=== PATIENT | male | born 1945 | race Caucasian/White ===

== ENCOUNTER 2019-08-17 23:05 | Emergency (ER) | payer MEDICARE, BC ==
[2019-08-17] MEDS ORDERED: LORazepam 2 MG/ML SDV IVPUSH ONE (23:48)
[2019-08-17 23:49] LABS: CHLORIDE,CL 106 mmol/L (98-107); SODIUM,NA 144 mmol/L (136-145)
--- NOTE | 2019-08-18 00:09 | EDM.PDOC ---
ED HPI GENERAL MEDICAL PROBLEM - General Chief Complaint: General Stated Complaint: confusion Time Seen by Provider: 08/17/19 23:07 Source of Information: Reports: Patient, EMS, Family History Limitations: Reports: Altered Mental Status - History of Present Illness INITIAL COMMENTS - FREE TEXT/NARRATIVE: Pt brought to ER via EMS for confusion states it began several days ago but worse today No focal neuro findngs other than confusion states he has been unsteady on his his feet for several days Has been off for past 2 weeks and has had decreased appetite and decreased oral intake Was concerned he might be dehydrated also sates he fell out of bed 2 nights ago No specific complaints after fall states no other trauma No recent illness No new meds Onset: Gradual Duration: Day(s):, Getting Worse Associated Symptoms: Reports: Confusion - Related Data Allergies Allergy/AdvReac Type Severity Reaction Status Date / Time No Known Allergies Allergy Verified 08/17/19 23:07 Home Meds: Home Meds Rosuvastatin [Crestor] 10 mg PO DAILY 08/17/19 [History] Past Medical History Cardiovascular History: Reports: High Cholesterol - Infectious Disease History Infectious Disease History: Reports: Measles, Mumps Social & Family History - Family History Family Medical History: Unobtainable - Tobacco Use Smoking Status *Q: Current Some Day Smoker Years of Tobacco use: 50 Packs/Tins Daily: 0.5 - Caffeine Use Caffeine Use: Reports: Coffee, Soda - Recreational Drug Use Recreational Drug Use: No ED ROS GENERAL - Review of Systems Review Of Systems: See Below Neurological: Reports: Confusion ED EXAM, GENERAL - Physical Exam Exam: See Below Exam Limited By: Altered Mental Status General Appearance: No Apparent Distress, Other (Confused) Throat/Mouth: Normal Oropharynx Head: Atraumatic Neck: Supple Respiratory/Chest: Lungs Clear Cardiovascular: Regular Rate, Rhythm GI/Abdominal: Non-Tender Extremities: No Pedal Edema Neurological: No Motor/Sensory Deficits, Confused Psychiatric: Anxious Skin Exam: Intact Course - Vital Signs Last Recorded V/S: Last Vital Signs Temp 99.2 F 08/17/19 23:10 Pulse 82 08/17/19 23:10 Resp 15 08/17/19 23:10 BP 153/68 H 08/17/19 23:10 Pulse Ox 96 08/17/19 23:10 - Orders/Labs/Meds Orders: Active Orders 24 hr Category Date Time Status Head wo Cont [CT] Stat Exams 08/17/19 23:08 Taken Labs: Laboratory Tests 08/17/19 08/17/19 Range/Units 23:21 23:21 WBC 6.8 (4.0-10.2) K/uL RBC 4.21 L (4.33-5.41) M/uL Hgb 13.6 (13.1-16.8) g/dL Hct 40.7 (39.0-49.0) % MCV 96.7 (84.0-98.0) fL MCH 32.3 (28.2-33.3) pg MCHC 33.4 (31.7-36.0) g/dL RDW 13.1 (11.2-14.1) % Plt Count 164 (150-350) K/uL Neut % (Auto) 64.6 (45.0-80.0) % Lymph % (Auto) 20.8 (10.0-50.0) % [place] % (Auto) 9.9 (2.0-14.0) % Eos % (Auto) 4.3 (0.0-5.0) % Baso % (Auto) 0.4 (0.0-2.0) % Neut # (Auto) 4.39 (1.40-7.00) K/uL Lymph # (Auto) 1.41 (0.50-3.50) K/uL [place] # (Auto) 0.67 (0.00-1.00) K/uL Eos # (Auto) 0.29 (0.00-0.50) K/uL Baso # (Auto) 0.03 (0.00-0.20) K/uL Sodium 144 (136-145) mmol/L Potassium 3.2 L (3.5-5.1) mmol/L Chloride 106 (98-107) mmol/L Carbon Dioxide 27.4 (21.0-32.0) mmol/L BUN 16 (7-18) mg/dL Creatinine 0.72 (0.51-1.17) mg/dL Est Cr Clr Drug Dosing 85.76 mL/min Estimated GFR (MDRD) > 60 mL/min Glucose 146 H (74-106) mg/dL Calcium 9.0 (8.5-10.1) mg/dL Magnesium 2.1 (1.8-2.4) mg/dL Total Bilirubin 0.3 (0.2-1.0) mg/dL AST 17 (15-37) U/L ALT 20 (12-78) U/L Alkaline Phosphatase 109 (46-116) IU/L Total Protein 7.2 (6.4-8.2) g/dL Albumin 3.7 (3.4-5.0) g/dL TSH, Ultra Sensitive 1.275 (0.358-3.740) mIU/mL Ethyl Alcohol 0.000 (0.000-0.080) g/dL Meds: Medications Discontinued Medications Generic Name Dose Route Start Last Admin Trade Name Freq PRN Reason Stop Dose Admin Lorazepam 1 mg 08/17/19 23:48 08/17/19 23:58 Ativan IVPUSH 08/17/19 23:49 1 mg ONETIME ONE Administration - Re-Assessments/Exams Free Text/Narrative Re-Assessment/Exam: 08/18/19 00:[address] report Bilateral subarachnoid bleed See lab D/W [facility] Will accept in transfer Transfer via ambulance Departure - Departure Time of Disposition: 00:15 Disposition: DC/Tfer to Acute Hospital 02 Clinical Impression: Subarachnoid bleed - Discharge Information *PRESCRIPTION DRUG MONITORING PROGRAM REVIEWED*: Not Applicable *COPY OF PRESCRIPTION DRUG MONITORING REPORT IN PATIENT SAMEER: Not Applicable Referrals: Jovan Rodriguez MD [Primary Care Provider] - Sepsis Event Note - Evaluation Sepsis Screening Result: No Definite Risk - Focused Exam Vital Signs: Vital Signs Temp Pulse Resp BP Pulse Ox 08/17/19 23:10 99.2 F 82 15 153/68 H 96 Date Exam was Performed: 08/18/19 Time Exam was Performed: 00:04 - My Orders Last 24 Hours: My Active Orders 08/17/19 23:08 Head wo Cont [CT] Stat - Assessment/Plan Last 24 Hours: My Active Orders 08/17/19 23:08 Head wo Cont [CT] Stat
[2019-08-18] MEDS ORDERED: LORazepam 2 MG/ML SDV IVPUSH ONE (00:16)
== END 2019-08-18 00:25 ==
LOC: LL.ED 23:05
DX: S06.6X9A Traumatic subarachnoid hemorrhage with loss of consciousness of unspecified duration, initial encounter (principal); F17.210 Nicotine dependence, cigarettes, uncomplicated; W06.XXXA Fall from bed, initial encounter
CPT/HCPCS: 36415; 70450; 80053; 80307; 83735; 84443; 85025; 87804; 96374; 99285; J2060

== ENCOUNTER 2019-11-06 18:25 | Emergency (ER) | payer MEDICARE, BC ==
--- NOTE | 2019-11-06 19:22 | EDM.PDOC ---
ED HPI GENERAL MEDICAL PROBLEM - General Chief Complaint: General Stated Complaint: confusion Time Seen by Provider: 11/06/19 18:46 Source of Information: Reports: Patient, Family History Limitations: Reports: Altered Mental Status (improved by time of arrival to ER) - History of Present Illness INITIAL COMMENTS - FREE TEXT/NARRATIVE: Patient brought be private vehicle to ER for evaluation of acute episode of confusion. Patient was out golfing today/mowing lawn. When returned home did not recognize his and became agitated. She called EMS who went to evaluate situation but it was decided that drive him in herself. Patient had bilateral subarachnoid bleed diagnosed Aug 18 at this ER. Main complaint at that time was acute confusion. Review of note mentions that patient's said he had been a bit "off" for a few weeks, not eating as much/ not as active but did not appear confused. Patient treated at [facility] for the bleed. Shortly afterwards he had GI bleed and ended up at [facility] in [place] to be treated for that. Was hospitalized for approx 30 days straight due to these two issues. has noticed that patient has had periodic hallucinations /confusion over the past few weeks that have been mild and brief. He will see another person present in the house and ask her why they are there. Today is the first day he was not able to recognize the however. She does not report any similar episodes present prior to the July bleed. - Related Data Allergies Allergy/AdvReac Type Severity Reaction Status Date / Time Tetanus Vaccines and Toxoid Allergy Swelling Verified 11/06/19 18:43 Home Meds: Home Meds Rosuvastatin [Crestor] 10 mg PO DAILY 08/17/19 [History] Finasteride 1 tab PO DAILY 11/06/19 [History] Pantoprazole Sodium [Protonix] 40 mg PO BID 11/06/19 [History] Sulfamethoxazole/Trimethoprim [Septra DS] 1 each PO BID #30 tab 11/06/19 [Rx] traZODone 1 tab PO BEDTIME PRN 11/06/19 [History] Past Medical History Cardiovascular History: Reports: High Cholesterol - Infectious Disease History Infectious Disease History: Reports: Measles, Mumps Social & Family History - Family History Family Medical History: Unobtainable - Tobacco Use Smoking Status *Q: Former Smoker Packs/Tins Daily: 0.5 Used Tobacco, but Quit: Yes Month/Year Tobacco Last Used: 06/2018 - Caffeine Use Caffeine Use: Reports: Coffee, Soda - Recreational Drug Use Recreational Drug Use: No ED ROS GENERAL - Review of Systems Review Of Systems: See Below Constitutional: Reports: No Symptoms HEENT: Reports: No Symptoms, Glasses Respiratory: Reports: No Symptoms Cardiovascular: Reports: No Symptoms GI/Abdominal: Reports: No Symptoms : Reports: Other (Has need to self cath since Jul due to issues urinating s/p subarachnoid). Denies: Discharge, Dysuria, Flank Pain, Frequency, Hematuria, Pain, Urgency Musculoskeletal: Reports: Other (no acute changes from baseline) Skin: Reports: No Symptoms Neurological: Reports: Confusion, Pre-Existing Deficit. Denies: Dizziness, Headache, Numbness, Paresthesia, Seizure, Syncope, Trouble Speaking, Difficulty Walking, Weakness, Change in Speech, Gait Disturbance Psychiatric: Reports: Confusion Hematologic/Lymphatic: Reports: No Symptoms Immunologic: Reports: No Symptoms ED EXAM, GENERAL - Physical Exam Exam: See Below Exam Limited By: No Limitations General Appearance: Alert, WD/WN, No Apparent Distress Eye Exam: Bilateral Eye: EOMI, PERRL Ears: Normal External Exam, Hearing Grossly Normal Nose: No: Nasal Deformity, Nasal Swelling, Nasal Drainage Throat/Mouth: Normal Lips, Normal Voice, No Airway Compromise Head: Atraumatic, Normocephalic Neck: Supple, Non-Tender Respiratory/Chest: No Respiratory Distress, Lungs Clear, Normal Breath Sounds, No Accessory Muscle Use, Chest Non-Tender Cardiovascular: Regular Rate, Rhythm, No Murmur GI/Abdominal: Normal Bowel Sounds, Soft, Non-Tender, No Distention (Male) Exam: Deferred Rectal (Males) Exam: Deferred Back Exam: Normal Inspection. No: CVA Tenderness (L), CVA Tenderness (R), Muscle Spasm, Paraspinal Tenderness, Vertebral Tenderness Extremities: Normal Range of Motion, Non-Tender, No Pedal Edema, Normal Capillary Refill Neurological: Alert, CN II-XII Intact, Other (Equal tone and strength bilaterally. Hx of minimal weakness on left since brain bleed in Jul. Oriented to self/month/day/date/location. Needed some prompting to remember President's name. ) Psychiatric: Normal Affect, Normal Mood Skin Exam: Warm, Dry, Intact, Normal Color Course - Vital Signs Last Recorded V/S: Last Vital Signs Temp 37.0 C 11/06/19 18:32 Pulse 74 11/06/19 19:15 Resp 14 11/06/19 19:15 BP 127/77 11/06/19 19:15 Pulse Ox 99 11/06/19 19:15 - Orders/Labs/Meds Orders: Active Orders 24 hr Category Date Time Status Head wo Cont [CT] Stat Exams 11/06/19 18:30 Taken CULTURE URINE [RM] Routine Lab 11/06/19 19:52 Ordered VITAMIN B12 [CHEM] Routine Lab 11/06/19 20:05 Ordered Labs: Laboratory Tests 11/06/19 11/06/19 11/06/19 Range/Units 19:00 19:00 19:00 WBC 6.0 (4.0-10.2) K/uL RBC 3.82 L (4.33-5.41) M/uL Hgb 11.6 L D (13.1-16.8) g/dL Hct 36.9 L (39.0-49.0) % MCV 96.6 (84.0-98.0) fL MCH 30.4 (28.2-33.3) pg MCHC 31.4 L (31.7-36.0) g/dL RDW 14.4 H (11.2-14.1) % Plt Count 162 (150-350) K/uL Neut % (Auto) 53.4 (45.0-80.0) % Lymph % (Auto) 29.0 (10.0-50.0) % [place] % (Auto) 11.6 (2.0-14.0) % Eos % (Auto) 5.2 H (0.0-5.0) % Baso % (Auto) 0.8 (0.0-2.0) % Neut # (Auto) 3.21 (1.40-7.00) K/uL Lymph # (Auto) 1.74 (0.50-3.50) K/uL [place] # (Auto) 0.70 (0.00-1.00) K/uL Eos # (Auto) 0.31 (0.00-0.50) K/uL Baso # (Auto) 0.05 (0.00-0.20) K/uL Sodium 140 (136-145) mmol/L Potassium 3.7 (3.5-5.1) mmol/L Chloride 102 (98-107) mmol/L Carbon Dioxide 28.0 (21.0-32.0) mmol/L BUN 12 (7-18) mg/dL Creatinine 0.83 (0.51-1.17) mg/dL Est Cr Clr Drug Dosing 79.40 mL/min Estimated GFR (MDRD) > 60 mL/min Glucose 101 (74-106) mg/dL Lactic Acid 1.1 (0.4-2.0) mmol/L Calcium 9.4 (8.5-10.1) mg/dL Magnesium (1.8-2.4) mg/dL Total Bilirubin 0.4 (0.2-1.0) mg/dL AST 19 (15-37) U/L ALT 26 (12-78) U/L Alkaline Phosphatase 82 (46-116) IU/L Ammonia (11-32) umol/L Total Protein 7.1 (6.4-8.2) g/dL Albumin 3.9 (3.4-5.0) g/dL Specimen Type Urine Color Urine Appearance Urine pH (5.0-9.0) Ur Specific [place] (1.005-1.030) Urine Protein (NEGATIVE) mg/dL Urine Glucose (UA) (NEGATIVE) mg/dL Urine Ketones (NEGATIVE) mg/dL Urine Occult Blood (NEGATIVE) Urine Nitrite (NEGATIVE) Urine Bilirubin (NEGATIVE) Urine Urobilinogen (0.2-1.0) E.U./dL Ur Leukocyte Esterase (NEGATIVE) Urine RBC /HPF Urine WBC /HPF Ur Epithelial Cells /LPF Urine Bacteria (NONE TO FEW) /HPF 11/06/19 11/06/19 11/06/19 Range/Units 19:00 19:00 19:30 WBC (4.0-10.2) K/uL RBC (4.33-5.41) M/uL Hgb (13.1-16.8) g/dL Hct (39.0-49.0) % MCV (84.0-98.0) fL MCH (28.2-33.3) pg MCHC (31.7-36.0) g/dL RDW (11.2-14.1) % Plt Count (150-350) K/uL Neut % (Auto) (45.0-80.0) % Lymph % (Auto) (10.0-50.0) % [place] % (Auto) (2.0-14.0) % Eos % (Auto) (0.0-5.0) % Baso % (Auto) (0.0-2.0) % Neut # (Auto) (1.40-7.00) K/uL Lymph # (Auto) (0.50-3.50) K/uL [place] # (Auto) (0.00-1.00) K/uL Eos # (Auto) (0.00-0.50) K/uL Baso # (Auto) (0.00-0.20) K/uL Sodium (136-145) mmol/L Potassium (3.5-5.1) mmol/L Chloride (98-107) mmol/L Carbon Dioxide (21.0-32.0) mmol/L BUN (7-18) mg/dL Creatinine (0.51-1.17) mg/dL Est Cr Clr Drug Dosing mL/min Estimated GFR (MDRD) mL/min Glucose (74-106) mg/dL Lactic Acid (0.4-2.0) mmol/L Calcium (8.5-10.1) mg/dL Magnesium 2.1 (1.8-2.4) mg/dL Total Bilirubin (0.2-1.0) mg/dL AST (15-37) U/L ALT (12-78) U/L Alkaline Phosphatase (46-116) IU/L Ammonia < 10 L (11-32) umol/L Total Protein (6.4-8.2) g/dL Albumin (3.4-5.0) g/dL Specimen Type Urincc Urine Color Yellow Urine Appearance Cloudy Urine pH 5.5 (5.0-9.0) Ur Specific [place] 1.010 (1.005-1.030) Urine Protein Negative (NEGATIVE) mg/dL Urine Glucose (UA) Negative (NEGATIVE) mg/dL Urine Ketones Negative (NEGATIVE) mg/dL Urine Occult Blood Trace-intact H (NEGATIVE) Urine Nitrite Positive H (NEGATIVE) Urine Bilirubin Negative (NEGATIVE) Urine Urobilinogen 0.2 (0.2-1.0) E.U./dL Ur Leukocyte Esterase Moderate H (NEGATIVE) Urine RBC 0-5 /HPF Urine WBC 20-30 H /HPF Ur Epithelial Cells Few /LPF Urine Bacteria Many H (NONE TO FEW) /HPF Meds: Medications Discontinued Medications Generic Name Dose Route Start Last Admin Trade Name Patrica PRN Reason Stop Dose Admin Thiamine HCl 100 mg 11/06/19 20:06 11/06/19 20:11 Vitamin B-1 IM 11/06/19 20:07 100 mg ONETIME ONE Administration - Radiology Interpretation Free Text/Narrative:: No acute bleed noted on head CT. Unchanged severe cerebral volume loss noted. Chronic white matter microvascular changes. - Re-Assessments/Exams Free Text/Narrative Re-Assessment/Exam: 11/06/19 20:23 CBC/Chem/Mg/Lactic/ammonia levels unremarkable. Head CT showed no acute bleed/ changes. UA showed mild elevation of WBC but do not suspect infection is of enough magnitude to cause the confusion. Further visiting with patient's led to finding out that patient has been having issues with cognition for a number of months prior to the bleed. The mentions him not acting like usual self, and having problems with basic tasks like balancing checkbook. Given the large amount of cerebral atrophy/small vessel disease noted on CT suspect patient has ongoing issues with early dementia that have recently worsened since the subarachnoid. Call placed to [facility] in [place]. Patient discussed with from Neurology. She agrees that this could be the case. She also mentions an encephalopathy secondary to the bleed that escalated patient's previous baseline problems. She recommended IM Thiamine and that patient be scheduled for outpatient cognitive evaluation at [facility]. We will also have patient discontinue recently started Crestor as that has potential for causing confusion/cognition issues. Will give Rx for Septra for two week coverage for UTI. Patient is to obtain new UA in 14 days to reassess urine and make certain infection has cleared. UC ordered. All of the above discussed with both the patient and his . Patient is understandably unhappy with possible dementia diagnosis. They are in agreement with plan. Departure - Departure Time of Disposition: 20:12 Disposition: Home, Self-Care 01 Condition: Good Clinical Impression: Episodic confusion, Hallucinations, unspecified UTI (urinary tract infection) Qualifiers: Urinary tract infection type: site unspecified Hematuria presence: without hematuria Qualified Code(s): N39.0 - Urinary tract infection, site not specified - Discharge Information *PRESCRIPTION DRUG MONITORING PROGRAM REVIEWED*: Not Applicable *COPY OF PRESCRIPTION DRUG MONITORING REPORT IN PATIENT SAMEER: Not Applicable Instructions: Confusion Referrals: Jovan Rodriguez MD [Primary Care Provider] - Forms: ED Department Discharge Additional Instructions: OK to stop Crestor for now. Make appointment to see Neuro at [facility] as an outpatient to have a neuro- cognitive evaluation performed. We spoke to Dr.Kunecka hernandez about this and this was her recommendation. Continue to observe for changes. No driving. Follow up as needed if you have sudden worsening problems. Recheck urine in two weeks to assess for response to Septra DS. Sepsis Event Note - Evaluation Sepsis Screening Result: No Definite Risk - Focused Exam Vital Signs: Vital Signs Temp Pulse Resp BP Pulse Ox 11/06/19 19:15 74 14 127/77 99 11/06/19 18:36 75 14 140/71 99 11/06/19 18:32 37.0 C 84 20 144/76 H 99 Date Exam was Performed: 11/06/19 Time Exam was Performed: 20:19 - My Orders Last 24 Hours: My Active Orders 11/06/19 18:30 Head wo Cont [CT] Stat 11/06/19 19:52 CULTURE URINE [RM] Routine 11/06/19 20:05 VITAMIN B12 [CHEM] Routine - Assessment/Plan Last 24 Hours: My Active Orders 11/06/19 18:30 Head wo Cont [CT] Stat 11/06/19 19:52 CULTURE URINE [RM] Routine 11/06/19 20:05 VITAMIN B12 [CHEM] Routine
[2019-11-06 19:35] LABS: CHLORIDE,CL 102 mmol/L (98-107); SODIUM,NA 140 mmol/L (136-145)
[2019-11-06] MEDS: Thiamine 200 MG/2 ML MDV IM ONE (20:11)
== END 2019-11-06 20:20 | disposition home or self-care (01) ==
LOC: LL.ED 18:25
DX: R41.0 Disorientation, unspecified (principal); R44.3 Hallucinations, unspecified; N39.0 Urinary tract infection, site not specified; E78.00 Pure hypercholesterolemia, unspecified; Z79.899 Other long term (current) drug therapy; Z87.891 Personal history of nicotine dependence; Z88.8 Allergy status to other drugs, medicaments and biological substances
CPT/HCPCS: 36415; 70450; 80053; 81001; 82140; 82607; 83605; 83735; 85025; 87086; 96372; 99284; J3411

== ENCOUNTER 2020-05-22 10:20 | Emergency (ER) | payer MEDICARE, BC ==
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
== END 2020-05-22 11:25 | disposition home or self-care (01) ==
LOC: LL.ED 10:20
DX: N39.0 Urinary tract infection, site not specified (principal); K27.9 Peptic ulcer, site unspecified, unspecified as acute or chronic, without hemorrhage or perforation; N40.1 Benign prostatic hyperplasia with lower urinary tract symptoms; E78.5 Hyperlipidemia, unspecified; K21.9 Gastro-esophageal reflux disease without esophagitis; E66.9 Obesity, unspecified; Z68.26 Body mass index [BMI] 26.0-26.9, adult; Z87.891 Personal history of nicotine dependence; Z88.7 Allergy status to serum and vaccine; Z79.899 Other long term (current) drug therapy
CPT/HCPCS: 81001; 87086; 99283

== ENCOUNTER 2022-09-30 09:09 | Emergency (ER) | payer MEDICARE, BC ==
[2022-09-30 09:57] LABS: ANION GAP 9.3 meq/L (7-15); CHLORIDE,CL 102 mmol/L (98-107); SODIUM,NA 140 mmol/L (136-145)
[2022-09-30 09:59] LABS: ESTIMATED GFR 69 mL/min (>=60)
[2022-09-30] MEDS: Sodium Chloride 0.9% 1,000 ML IV ONE (11:55)
[2022-09-30] MEDS: Sodium Chloride 0.9% 10 ML Syringe FLUSH PRN (11:55)
== END 2022-09-30 15:39 | disposition home or self-care (01) ==
LOC: LL.ED 09:09
DX: S06.9X9A Unspecified intracranial injury with loss of consciousness of unspecified duration, initial encounter (principal); E78.00 Pure hypercholesterolemia, unspecified; K21.9 Gastro-esophageal reflux disease without esophagitis; N40.0 Benign prostatic hyperplasia without lower urinary tract symptoms; E66.9 Obesity, unspecified; Z68.27 Body mass index [BMI] 27.0-27.9, adult; Z86.73 Personal history of transient ischemic attack (TIA), and cerebral infarction without residual deficits; Z79.899 Other long term (current) drug therapy; W18.09XA Striking against other object with subsequent fall, initial encounter
CPT/HCPCS: 36415; 70450; 72125; 80053; 82947; 83605; 83735; 83880; 84484; 85025; 85610; 93005; 93010; 96360; 96361; 99284; 99284-25; J3490; J7030

== ENCOUNTER 2024-02-10 11:00 | Emergency (ER) | payer MEDICARE, BC ==
[2024-02-10] MEDS ORDERED: Sodium Chloride 0.9% 10 ML Syringe FLUSH PRN (11:41)
[2024-02-10 11:55] LABS: BASOPHILS ABSOLUTE AUTO 0.01 K/uL (0.00-0.20); BASOPHILS PERCENT AUTO 0.1 % (0.0-2.0); HEMATOCRIT 39.5 % (39.0-49.0); LYMPHOCYTES ABSOLUTE AUTO 0.55 K/uL (0.50-3.50); LYMPHOCYTES PERCENT AUTO 4.1 % (10.0-50.0); MEAN CORPUSCULAR HEMOGLOBIN 31.3 pg (28.2-33.3); MEAN CORPUSCULAR HGB CONC 32.9 g/dL (31.7-36.0); MONOCYTES ABSOLUTE AUTO 1.01 K/uL (0.00-1.00); MONOCYTES PERCENT AUTO 7.5 % (2.0-14.0); NEUTROPHILS ABSOLUTE AUTO 11.88 K/uL (1.40-7.00); NEUTROPHILS PERCENT AUTO 88.3 % (45.0-80.0); PLATELET COUNT,PLT 186 K/uL (150-350); RED BLOOD CELL COUNT 4.16 M/uL (4.33-5.41); RED CELL DISTRIBUTION WIDTH 13.6 % (11.2-14.1); WHITE BLOOD CELL COUNT,WBC 13.5 K/uL (4.0-10.2)
[2024-02-10 12:34] LABS: ALBUMIN 3.5 g/dL (3.4-5.0); ANION GAP 8.5 meq/L (7-15); BILIRUBIN TOTAL 0.9 mg/dL (0.2-1.0); CALCIUM 9.1 mg/dL (8.5-10.1); CARBON DIOXIDE,CO2 27.5 mmol/L (21.0-32.0); CREATININE 1.08 mg/dL (0.51-1.17); EST CRCL DRUG DOSING (CG) 55.46 mL/min; MAGNESIUM 2.2 mg/dL (1.8-2.4); POTASSIUM,K 4.7 mmol/L (3.5-5.1); PROTEIN TOTAL,TP 7.3 g/dL (6.4-8.2)
[2024-02-10] MEDS: Sodium Chloride 0.9% 1,000 ML IV ONE (14:00)
[2024-02-10] MEDS: Ondansetron 4 MG/2 ML SDV IVPUSH ONE (15:18)
[2024-02-10] MEDS: Morphine 2 MG/ML SYRINGE IVPUSH ONE (15:20)
== END 2024-02-10 15:45 ==
LOC: LL.ED 11:00
DX: S72.001A Fracture of unspecified part of neck of right femur, initial encounter for closed fracture (principal); E78.00 Pure hypercholesterolemia, unspecified; K21.9 Gastro-esophageal reflux disease without esophagitis; E66.9 Obesity, unspecified; Z86.73 Personal history of transient ischemic attack (TIA), and cerebral infarction without residual deficits; Z79.899 Other long term (current) drug therapy; Z88.7 Allergy status to serum and vaccine; W19.XXXA Unspecified fall, initial encounter; Y93.01 Activity, walking, marching and hiking; Y92.009 Unspecified place in unspecified non-institutional (private) residence as the place of occurrence of the external cause
CPT/HCPCS: 36415; 72170; 73552; 80053; 83735; 83880; 85025; 96374; 96375; 99284; J2270; J2405; J7030

== ENCOUNTER 2024-02-17 13:13 | Inpatient (IN) | payer MEDICARE, BC ==
[2024-02-17] MEDS ORDERED: Triamcinolone Acetonide 0.1% Crm 15 GM Tube TOP PRN (15:04)
[2024-02-17] MEDS: oxyCODONE 5 MG Tab PO PRN (15:41)
[2024-02-17] MEDS: Sennosides 8.6 MG Tab PO SCH (17:10)
[2024-02-17] MEDS: Enoxaparin 40 MG/0.4 ML Syringe SUBCUT SCH (19:03)
[2024-02-17] MEDS: atorvaSTATin 20 MG Tab PO SCH (19:03)
[2024-02-17] MEDS: traZODone 50 MG Tab PO SCH (19:04)
[2024-02-17] MEDS: Melatonin 3 MG Tab PO SCH (19:04)
[2024-02-17] MEDS: Acetaminophen 325 MG Tab PO PRN (19:05)
[2024-02-18] MEDS: Donepezil 10 MG Tab PO SCH (08:37)
[2024-02-18] MEDS: Ferrous Sulfate 325 MG Tab PO SCH (08:37)
[2024-02-18] MEDS: Tamsulosin 0.4 MG Cap.ER PO SCH (08:37)
[2024-02-18] MEDS: Finasteride 5 MG Tab PO SCH (08:38)
[2024-02-18] MEDS: Folic Acid 1 MG Tab PO SCH (08:38)
[2024-02-18] MEDS: Pantoprazole 40 MG Tab.CR PO SCH (08:39)
[2024-02-18] MEDS: Cyanocobalamin (Vitamin B12) 1,000 MCG Tab PO SCH (08:40)
[2024-02-18] MEDS: Multivitamin Tab PO SCH (08:40)
[2024-02-18] MEDS: Cyclobenzaprine 10 MG Tab PO PRN (13:28)
[2024-02-19 12:11] LABS: BASOPHILS ABSOLUTE AUTO 0.07 K/uL (0.00-0.20); BASOPHILS PERCENT AUTO 0.8 % (0.0-2.0); EOSINOPHILS PERCENT AUTO 5.6 % (0.0-5.0); HEMATOCRIT 29.5 % (39.0-49.0); HEMOGLOBIN 9.3 g/dL (13.1-16.8); LYMPHOCYTES ABSOLUTE AUTO 1.03 K/uL (0.50-3.50); LYMPHOCYTES PERCENT AUTO 11.5 % (10.0-50.0); MEAN CORPUSCULAR HEMOGLOBIN 30.8 pg (28.2-33.3); MEAN CORPUSCULAR HGB CONC 31.5 g/dL (31.7-36.0); MEAN CORPUSCULAR VOLUME 97.7 fL (84.0-98.0); MONOCYTES ABSOLUTE AUTO 0.69 K/uL (0.00-1.00); MONOCYTES PERCENT AUTO 7.7 % (2.0-14.0); NEUTROPHILS ABSOLUTE AUTO 6.64 K/uL (1.40-7.00); NEUTROPHILS PERCENT AUTO 74.4 % (45.0-80.0); PLATELET COUNT,PLT 320 K/uL (150-350); RED BLOOD CELL COUNT 3.02 M/uL (4.33-5.41); RED CELL DISTRIBUTION WIDTH 15.9 % (11.2-14.1); WHITE BLOOD CELL COUNT,WBC 8.9 K/uL (4.0-10.2)
[2024-02-19] MEDS: Acetaminophen 500 MG Tab PO SCH (13:17)
[2024-02-19] MEDS ORDERED: Acetaminophen 500 MG Tab PO SCH (14:00)
[2024-02-20] MEDS: hydrOXYzine HCl 25 MG Tab PO PRN (08:05)
[2024-02-26] MEDS ORDERED: oxyCODONE 5 MG Tab PO PRN (14:40)
[2024-02-26] MEDS: traZODone 50 MG Tab PO SCH (20:21)
[2024-03-03] MEDS: Escitalopram 10 MG Tab PO SCH (07:52)
[2024-03-09] MEDS: Bacitracin/Neomycin/Polymyxin B Oint 0.9 GM U/D Packet TOP SCH (12:25)
[2024-03-12] MEDS: Escitalopram 10 MG Tab PO SCH (08:16)
[2024-03-23] MEDS: Bacitracin/Neomycin/Polymyxin B Oint 0.9 GM U/D Packet TOP SCH (09:58)
[2024-03-25] MEDS: Amoxicillin/Clavulanate K 875-125 MG Tab PO SCH (19:45)
[2024-03-25] MEDS: traZODone 50 MG Tab PO SCH (19:47)
[2024-03-26] MEDS: Polyethylene Glycol 3350 Powder 510 GM Bot PO SCH (08:12)
[2024-04-07] MEDS ORDERED: Bacitracin/Neomycin/Polymyxin B Oint 0.9 GM U/D Packet TOP PRN (15:24)
[2024-04-10 07:36] LABS: BASOPHILS ABSOLUTE AUTO 0.02 K/uL (0.00-0.20); BASOPHILS PERCENT AUTO 0.3 % (0.0-2.0); EOSINOPHILS ABSOLUTE AUTO 0.31 K/uL (0.00-0.50); EOSINOPHILS PERCENT AUTO 5.3 % (0.0-5.0); LYMPHOCYTES ABSOLUTE AUTO 1.26 K/uL (0.50-3.50); LYMPHOCYTES PERCENT AUTO 21.7 % (10.0-50.0); MEAN CORPUSCULAR HEMOGLOBIN 31.1 pg (28.2-33.3); MEAN CORPUSCULAR HGB CONC 31.6 g/dL (31.7-36.0); MEAN CORPUSCULAR VOLUME 98.4 fL (84.0-98.0); MONOCYTES ABSOLUTE AUTO 0.57 K/uL (0.00-1.00); MONOCYTES PERCENT AUTO 9.8 % (2.0-14.0); NEUTROPHILS ABSOLUTE AUTO 3.64 K/uL (1.40-7.00); NEUTROPHILS PERCENT AUTO 62.9 % (45.0-80.0); PLATELET COUNT,PLT 185 K/uL (150-350); RED BLOOD CELL COUNT 3.86 M/uL (4.33-5.41); RED CELL DISTRIBUTION WIDTH 14.7 % (11.2-14.1); WHITE BLOOD CELL COUNT,WBC 5.8 K/uL (4.0-10.2)
[2024-04-18] MEDS: Acetaminophen 500 MG Tab PO PRN (11:24)
[2024-04-24] MEDS: FLU (Fluad Triv) TS24-25 (65UP)/MF59C/PF 45 MCG/0.5 ML Syringe IM ONE (08:28)
[2024-05-06 12:15] LABS: BASOPHILS ABSOLUTE AUTO 0.04 K/uL (0.00-0.20); BASOPHILS PERCENT AUTO 0.6 % (0.0-2.0); EOSINOPHILS ABSOLUTE AUTO 0.32 K/uL (0.00-0.50); EOSINOPHILS PERCENT AUTO 4.5 % (0.0-5.0); HEMATOCRIT 38.9 % (39.0-49.0); HEMOGLOBIN 12.4 g/dL (13.1-16.8); IMMATURE GRAN ABSOLUTE AUTO 0.01 10^3/uL (0.00-0.50); IMMATURE GRAN PERCENT AUTO 0.1 % (0.0-5.0); LYMPHOCYTES ABSOLUTE AUTO 1.38 K/uL (0.50-3.50); LYMPHOCYTES PERCENT AUTO 19.4 % (10.0-50.0); MEAN CORPUSCULAR HEMOGLOBIN 30.5 pg (28.2-33.3); MEAN CORPUSCULAR HGB CONC 31.9 g/dL (31.7-36.0); MEAN CORPUSCULAR VOLUME 95.6 fL (84.0-98.0); MONOCYTES ABSOLUTE AUTO 0.58 K/uL (0.00-1.00); MONOCYTES PERCENT AUTO 8.2 % (2.0-14.0); NEUTROPHILS ABSOLUTE AUTO 4.77 K/uL (1.40-7.00); NEUTROPHILS PERCENT AUTO 67.2 % (45.0-80.0); PLATELET COUNT,PLT 192 K/uL (150-350); RED BLOOD CELL COUNT 4.07 M/uL (4.33-5.41); RED CELL DISTRIBUTION WIDTH 13.9 % (11.2-14.1); WHITE BLOOD CELL COUNT,WBC 7.1 K/uL (4.0-10.2)
== END 2024-05-08 09:20 | disposition home health service (06) | DRG 560 ==
LOC: LL.SWG 13:13
PROVIDERS: ADMIT Physician Assistant; ATTEND Student in an Organized Health Care Education/Training Program
DX: S72.141D Displaced intertrochanteric fracture of right femur, subsequent encounter for closed fracture with routine healing (principal); D62 Acute posthemorrhagic anemia; R53.81 Other malaise; H91.90 Unspecified hearing loss, unspecified ear; H54.7 Unspecified visual loss; E78.00 Pure hypercholesterolemia, unspecified; K21.9 Gastro-esophageal reflux disease without esophagitis; N40.0 Benign prostatic hyperplasia without lower urinary tract symptoms; M19.90 Unspecified osteoarthritis, unspecified site; E66.9 Obesity, unspecified; F41.9 Anxiety disorder, unspecified; F32.9 Major depressive disorder, single episode, unspecified; F51.01 Primary insomnia; G31.84 Mild cognitive impairment of uncertain or unknown etiology; K59.03 Drug induced constipation; L89.622 Pressure ulcer of left heel, stage 2; L89.612 Pressure ulcer of right heel, stage 2; L60.0 Ingrowing nail; Z98.890 Other specified postprocedural states; Z88.7 Allergy status to serum and vaccine; Z79.899 Other long term (current) drug therapy; Z79.01 Long term (current) use of anticoagulants; Z87.11 Personal history of peptic ulcer disease; Z86.73 Personal history of transient ischemic attack (TIA), and cerebral infarction without residual deficits; Z68.29 Body mass index [BMI] 29.0-29.9, adult; Z87.891 Personal history of nicotine dependence; W19.XXXD Unspecified fall, subsequent encounter
CPT/HCPCS: 36415; 85025; 90653; 97110-GO; 97110-GP; 97116-GP; 97129-GO; 97130-GO; 97163-GP; 97165-GO; 97530-GO; 97530-GP; 97535-GO; 99306; A9270-GY; J1650

== ENCOUNTER 2024-06-23 07:00 | Emergency (ER) | payer MEDICARE, BC ==
[2024-06-23 07:46] LABS: BASOPHILS ABSOLUTE AUTO 0.06 K/uL (0.00-0.20); BASOPHILS PERCENT AUTO 0.9 % (0.0-2.0); EOSINOPHILS ABSOLUTE AUTO 0.27 K/uL (0.00-0.50); EOSINOPHILS PERCENT AUTO 4.2 % (0.0-5.0); HEMATOCRIT 40.6 % (39.0-49.0); HEMOGLOBIN 13.2 g/dL (13.1-16.8); IMMATURE GRAN ABSOLUTE AUTO 0.02 10^3/uL (0.00-0.04); IMMATURE GRAN PERCENT AUTO 0.3 % (0.0-0.4); LYMPHOCYTES ABSOLUTE AUTO 0.87 K/uL (0.50-3.50); LYMPHOCYTES PERCENT AUTO 13.6 % (10.0-50.0); MEAN CORPUSCULAR HEMOGLOBIN 30.1 pg (28.2-33.3); MEAN CORPUSCULAR HGB CONC 32.5 g/dL (31.7-36.0); MEAN CORPUSCULAR VOLUME 92.7 fL (84.0-98.0); MONOCYTES ABSOLUTE AUTO 0.54 K/uL (0.00-1.00); MONOCYTES PERCENT AUTO 8.4 % (2.0-14.0); NEUTROPHILS ABSOLUTE AUTO 4.65 K/uL (1.40-7.00); NEUTROPHILS PERCENT AUTO 72.6 % (45.0-80.0); PLATELET COUNT,PLT 160 K/uL (150-350); RED BLOOD CELL COUNT 4.38 M/uL (4.33-5.41); RED CELL DISTRIBUTION WIDTH 13.2 % (11.2-14.1); WHITE BLOOD CELL COUNT,WBC 6.4 K/uL (4.0-10.2)
[2024-06-23 08:13] LABS: ALANINE AMINOTRANSFERASE,ALT 17 U/L (12-78); ALBUMIN 3.2 g/dL (3.4-5.0); ALKALINE PHOSPHATASE 152 IU/L (46-116); ANION GAP 8.5 meq/L (7-15); ASPARTATE AMNIOTRANSFERASE,AST 16 U/L (15-37); BILIRUBIN TOTAL 0.5 mg/dL (0.2-1.0); BLOOD UREA NITROGEN,BUN 15 mg/dL (7-18); CALCIUM 9.1 mg/dL (8.5-10.1); CARBON DIOXIDE,CO2 28.5 mmol/L (21.0-32.0); CHLORIDE,CL 106 mmol/L (98-107); CREATININE 0.98 mg/dL (0.51-1.17); GLUCOSE RANDOM 135 mg/dL (70-99); MAGNESIUM 2.3 mg/dL (1.8-2.4); POTASSIUM,K 3.9 mmol/L (3.5-5.1); PRO B-TYPE NATRIUR PEPT,BNPPRO 40 pg/mL (0-125); PROTEIN TOTAL,TP 7.1 g/dL (6.4-8.2); SODIUM,NA 143 mmol/L (136-145)
[2024-06-23 08:17] LABS: ESTIMATED GFR 78 mL/min (>=60)
[2024-06-23] MEDS ORDERED: Sodium Chloride 0.9% 10 ML Syringe FLUSH PRN (08:48)
[2024-06-23] MEDS: Sodium Chloride 0.9% 1,000 ML IV SCH (09:11)
[2024-06-23 12:15] LABS: APPEARANCE,URINE SLIGHTLY CLOUDY; BILIRUBIN,URINE NEGATIVE (NEGATIVE); COLOR,URINE YELLOW; GLUCOSE,URINE NEGATIVE (NEGATIVE); KETONES,URINE NEGATIVE (NEGATIVE); LEUKOCYTE ESTERASE,URINE SMALL (NEGATIVE); NITRITE,URINE NEGATIVE (NEGATIVE); OCCULT BLOOD,URINE NEGATIVE (NEGATIVE); PH,URINE 6.5 (5.0-9.0); PROTEIN,URINE TRACE mg/dL (NEGATIVE); UROBILINOGEN,URINE 0.2 E.U./dL (0.2-1.0)
[2024-06-23 12:23] LABS: EPITHELIAL CELLS,URINE MODERATE /LPF; RBC,URINE 0-5 /HPF
[2024-06-23 12:24] LABS: AMORPHOUS SEDIMENT,URINE OCCASIONAL /HPF (0/HPF); BACTERIA,URINE RARE /HPF (NONE TO FEW); MUCUS,URINE MANY /LPF (NEGATIVE)
== END 2024-06-23 12:20 | disposition home or self-care (01) ==
LOC: LL.ED 07:00
DX: R56.9 Unspecified convulsions (principal); K21.9 Gastro-esophageal reflux disease without esophagitis; E78.00 Pure hypercholesterolemia, unspecified; E66.9 Obesity, unspecified; Z88.7 Allergy status to serum and vaccine; Z79.899 Other long term (current) drug therapy
CPT/HCPCS: 36415; 70450; 80053; 81001; 82140; 83605; 83735; 83880; 84484; 85025; 87086; 87428-QW; 93005; 96360; 96361; 99285-25; J7030